=== PATIENT | male | born 1980 | race Caucasian/White ===

== ENCOUNTER 2021-05-18 00:33 | Emergency (ER) | payer BC ==
[~2021-05-18 00:33] MED LIST: BACTRIM DS TAB1 EACH PO; KEFLEX CAP 500500 MG PO; TORADOL 10 MG T10 MG PO
== END 2021-05-18 02:36 | disposition home or self-care (01) ==
LOC: ER1 00:33
DX: H57.11 Ocular pain, right eye (principal); E11.9 Type 2 diabetes mellitus without complications
CPT/HCPCS: 65205; 99283

== ENCOUNTER 2021-06-20 19:42 | Observation (INO) | payer BC ==
[~2021-06-20] VITALS: Ht 175.3 cm; Wt 95.3 kg
[2021-06-20 20:05] LABS: HEMOGLOBIN 16.6 gm/dl (14.0-17.5); RED BLOOD COUNT 5.28 M/UL (4.20-5.50); WHITE BLOOD COUNT 9.7 K/UL (4.5-11.0)
[2021-06-20 20:24] LABS: BUN/CREATININE RATIO 9 (0-10)
[2021-06-20] MEDS ORDERED: BASAGLAR K100 UNIT/1 SQ (21:48)
[2021-06-20] MEDS ORDERED: NOVOLOG FL100 UNIT/1 SQ (21:50)
[2021-06-20] MEDS ORDERED: VOLTAREN EC 7575 MG PO (21:54)
[2021-06-20] MEDS ORDERED: LOTRIMIN CREAM15 GM TP (21:54)
[2021-06-21] MEDS ORDERED: HYDROCODON-ACE1 EAC2 PO (08:42)
[2021-06-21] MEDS ORDERED: CYCLOBENZAPRINE10 MG PO (08:42)
[2021-06-21] MEDS ORDERED: IBUPROFEN600 MG PO (08:42)
[2021-06-21] MEDS ORDERED: COLACE100 MG PO (08:42)
[2021-08-05] MEDS ORDERED: RYBELSUS7 MG PO (07:17)
== END 2021-06-21 18:20 | disposition home or self-care (01) ==
LOC: ER1 19:42 → CDU 21:07 → M/S 22:50
PROVIDERS: Family Medicine; ADMIT Surgery
DX: S42.032A Displaced fracture of lateral end of left clavicle, initial encounter for closed fracture (principal); S27.0XXA Traumatic pneumothorax, initial encounter; S22.42XA Multiple fractures of ribs, left side, initial encounter for closed fracture; E11.9 Type 2 diabetes mellitus without complications; Z20.822 Contact with and (suspected) exposure to COVID-19; Z90.49 Acquired absence of other specified parts of digestive tract; V20.4XXA Motorcycle driver injured in collision with pedestrian or animal in traffic accident, initial encounter
CPT/HCPCS: 70450; 71045; 71260; 72125; 72170; 73000; 73030; 73564; 80053; 83605; 85025; 85610; 85730; 86850; 86900; 86901; 90471; 90715; 96376; 99285; G0378; G0480; J2270; J7030; Q9967; U0002